=== PATIENT | female | born 1940 | race Caucasian/White ===

== ENCOUNTER 2019-07-08 16:49 | Inpatient (IN) | payer OTHER, BC ==
[~2019-07-08] VITALS: Ht 160 cm; Wt 54.4 kg
[2019-07-08 16:54] VITALS: Ht 160 cm; Wt 54.4 kg
--- NOTE | 2019-07-08 17:23 | NUR ---
PT DORAA FROM [facility] WITH CO INCREASED ALOC OVER THE LAST WEEK. IS AT BEDSIDE. PER , PT WAS DIAGNOSED A UTI AND TREATED WITH ABX AND PER THEY CHECKED HER URINE TODAY AND IT CAME BACK NEGATIVE. AT THIS TIME PT IS AWAKE AND ALERT TIMES 4. PT IS ABLE TO ANSWER ALL QUESTIONS AND FOLLOW ALL COMMANDS. PT HAS WEAKNESS TO R SIDE WHICH IS PT USUALY PER STROKE 8 YEARS AGO. PT STATES SHE HAS DECREASED EYE SITE TO L EYE. PT COMPLAINT AT THIS TIME IUS GENERAL WEAKNESS. PT IS HOOKED UP TO FULL MONITORS, SIDE RAIL UP, CALL LIGHT IN REACH, WILL CONTINUE TO MONITOR
[2019-07-08 17:31] LABS: BASOPHIL % 0.6 % (0-2); PLATELET COUNT 187 x10^3mcL (130-400); RED CELL DISTRIBUTION WIDTH 14.1 % (11.5-14.5)
[2019-07-08] MEDS ORDERED: GOOD SENSE ASPI81 M3 PO (17:45)
[2019-07-08] MEDS ORDERED: VITAMIN C500 M6 PO (17:45)
[2019-07-08] MEDS ORDERED: LIPITOR80 MG PO ×2 (17:46→17:53)
[2019-07-08] MEDS ORDERED: BUMETANIDE1 MG PO (17:46)
[2019-07-08 17:47] LABS: CALCIUM 10.2 mg/dL (8.5-10.1); CARBON DIOXIDE 39.3 mmol/L (21-32); CHLORIDE SERUM 97 mmol/L (98-107); CREATININE SERUM 1.9 mg/dL (0.6-1.0); GLUCOSE SERUM 132 mg/dL (74-106); POTASSIUM SERUM 3.9 mmol/L (3.5-5.1); SODIUM SERUM 137 mmol/L (136-145)
[2019-07-08] MEDS ORDERED: COR6 PO (17:47)
[2019-07-08] MEDS ORDERED: GABAPENTIN100 M2 PO (17:48)
[2019-07-08] MEDS ORDERED: ARICEPT10 MG PO (17:48)
[2019-07-08] MEDS ORDERED: NATURAL IRON65 MG PO (17:49)
[2019-07-08] MEDS ORDERED: SYNTHROID0.112 MG PO (17:50)
[2019-07-08] MEDS ORDERED: MAGNESIUM OXID400 MG PO ×2 (17:50→17:54)
[2019-07-08] MEDS ORDERED: ISOSORBIDE MONO60 MG PO ×2 (17:50→17:54)
[2019-07-08 17:51] LABS: ALKALINE PHOSPHATASE 141 U/L (46-116); ALT/SGPT 12 U/L (14-59); AST/SGOT 9 U/L (15-37); BILIRUBIN TOTAL 0.29 mg/dL (0.20-1.00); LIPASE 78 IU/L (73-393)
[2019-07-08] MEDS ORDERED: NAMENDA10 M2 PO (17:51)
[2019-07-08] MEDS ORDERED: PANTOPRAZOLE SO40 M1 PO (17:51)
[2019-07-08] MEDS ORDERED: MELATONIN3 MG PO (17:51)
[2019-07-08] MEDS ORDERED: PROMETHAZI6.25 MG/5 PO (17:52)
[2019-07-08] MEDS ORDERED: RYT150 PO ×2 (17:53→17:55)
[2019-07-08 17:54] LABS: ALBUMIN 2.8 g/dL (3.4-5.0); TOTAL PROTEIN, SERUM 6.1 g/dL (6.4-8.2)
[2019-07-08] MEDS ORDERED: CIPRO250 MG PO (17:54)
[2019-07-08 18:28] LABS: microscopic required? YES; urine erythrocyte NEGATIVE (NEGATIVE)
[2019-07-08 18:34] LABS: AMPHETAMINE QUAL UR NONE DETECTED (See below)
--- NOTE | 2019-07-08 18:40 | NUR ---
PT SISTER AND DAUGHTER AT BEDSIDE. PT ACTING NORMAL PER FAMILY AND COMMUNICATING AND TALKING WITH FAMILY. PT HOOKED UP TO FULL MONITORS, SIDE RAILS UP, CALL LIGHT IN REACH, WILL CONTINUE TO MONITOR.
--- NOTE | 2019-07-08 18:41 | NUR ---
ABOVE NOTE DONE BY INOCENTE AHN
--- NOTE | 2019-07-08 19:26 | NUR ---
REPORT GIVEN TO KARINE BROWER FOR FURTHER CARE OF PT
--- NOTE | 2019-07-08 19:29 | NUR ---
RECEIVED REPORT FROM ANABELLE BROWER. ASSUMING ALL CARE. PT IS A/OX4. BREATHING IS E/U ON RA. NO S/S OF ACUTE DISTRESS NOTED. WILL CONT TO MONITOR
--- NOTE | 2019-07-08 21:40 | NUR ---
REPORT GIVEN TO ED BROWER FOR CONTINUITY OF CARE. ALL QUESTIONS/CONCERNS ADDRESSED.
--- NOTE | 2019-07-08 21:50 | NUR ---
PT TRANSFERRED AT THIS TIME VIA [facility]. NO ACUTE CHANGES NOTED
[2019-07-08 22:18] LABS: CHOLESTEROL/HDL RATIO 3.9
[2019-07-08 22:33] VITALS: BP 130/56
[2019-07-08 23:21] LABS: FREE T4 1.26 ng/dL (0.76-1.46); FREE THYROXINE INDEX 2.9 ug/dL (1.4-4.5); T4(THYROXINE) 8.1 ug/dL (4.7-13.3)
--- NOTE | 2019-07-08 23:34 | NUR ---
Admitted this 78y/o female from ED dx of UTI. Came from [facility]. Awake, verbally responsive. Oriented x3. No respiratory distress noted on 02 2lpm via n/c. Denies pain. Denies n/v. Admission assessment done. No pressure injury noted. Blanchable redness to sacral area, optifoam applied for protection. Turned and repositioned to side. SCD in place. Tele#8 sinus bryan. HR-50's. Daughter Joycelyn provided some medical history. Will cont.to monitor. Call light within reach.
[2019-07-09 03:24] LABS: T3 TOTAL 0.48 ng/mL
--- NOTE | 2019-07-09 04:30 | NUR ---
Afebrile. No significant change in condition noted. Denies pain. No cough or congestion noted. Weight shift assistance provided. Turned and repositioned q2h. Kept pressure off back and bony prominences. Heels floated. SCD in place. Denies dysuria or hematuria noted. Cont.on IV rocephin. In no apparent distress.
[2019-07-09 05:05] VITALS: BP 128/54
[2019-07-09 07:06] LABS: CALCIUM 10.5 mg/dL (8.5-10.1); CARBON DIOXIDE 35.6 mmol/L (21-32); CHLORIDE SERUM 96 mmol/L (98-107); CREATININE SERUM 1.9 mg/dL (0.6-1.0); GLUCOSE SERUM 315 mg/dL (74-106); MAGNESIUM 1.8 mg/dL (1.8-2.4); PHOSPHOROUS 3.4 mg/dL (2.5-4.9); POTASSIUM SERUM 4.3 mmol/L (3.5-5.1); SODIUM SERUM 137 mmol/L (136-145)
--- NOTE | 2019-07-09 07:30 | NUR ---
RECEIVED PT FROM STATISTICAL PROGRAMMER ANALYST. ASSESSED AND DOCUMENTED. STABLE. DENIES ANY PAIN. SAFTEY PRECAUTIONS ARE IN PLACE. WILL MONITOR.
--- NOTE | 2019-07-09 09:00 | NUR ---
INFORMED ABOUT PT POOR APPETITE AND REQUESTED FOR GLUCERNA WITH MEAL. ALSO INFORMED HIM ABOUT A1C IS 8.6 AND REQUESTED FOR ACCUCHECK ORDER.
[2019-07-09 09:10] VITALS: BP 143/53
--- NOTE | 2019-07-09 10:00 | NUR ---
PT IS STABLE. ENCOURAGED PT TO REPOSITION Q2HR AND EXPLAINED THE IMPORTANCE OF IT. FAMILY AT BEDSIDE.
[2019-07-09 11:56] VITALS: BP 114/45
--- NOTE | 2019-07-09 12:40 | NUR ---
PT RESTING IN BED COMFORTABLY. STABLE. ENCOURAGED PT TO EAT.
[2019-07-09 12:46] LABS: PLATELET COUNT 199 x10^3mcL (130-400); RED CELL DISTRIBUTION WIDTH 14.3 % (11.5-14.5)
[2019-07-09 16:28] VITALS: BP 137/56
--- NOTE | 2019-07-09 17:00 | NUR ---
PT RESTING IN BED COMFORTABLY. STABLE. DENIES ANY PAIN. FAMILY AT BEDSIDE.
--- NOTE | 2019-07-09 19:05 | NUR ---
PT RESTING IN BED COMFORTABLY. DENIES ANY PAIN. STABLE. GAVE REPORT TO SENIOR RELIABILITY ENGINEER NURSE.
--- NOTE | 2019-07-09 19:20 | NUR ---
PT RECEIVED A/O X3, FORGETFUL, ABLE TO MAKE NEEDS KNOWN. NEWTOK TO BRANDY EARS. TELE #8, PT DENIES ANY CP/PRESSURE. PULSES PALPABLE, NO EDEMA PRESENT. BREATHING IS EVEN AND UNLABORED ON 2L NC, NO RESP DISTRESS OBSERVED. ABD SOFT AND ROUND, BOWEL TONES ACTIVE X4 QUAD, DENIES N/V. VOIDS FREELY USING BEDPAN, BUT MAY HAVE EPISODES OF URINARY INCONTINENCE. GENERALIZED WEAKNESS, AMBULATORY WITH FWW AT BASELINE, FALL PRECAUTIONS IN PLACE. SKIN IS WARM AND DRY, INTACT. PT DENIES HAVING ANY PAIN AT THIS TIME. SL TO LAC, INTACT, SITE WNL. NO ACUTE DISTRESS OBSERVED. BED IN LOWEST SETTING, SIDE RAILS UP X2, CALL LIGHT WITHIN REACH. WILL CONT TO MONITOR.
[2019-07-09 21:07] VITALS: BP 162/48
--- NOTE | 2019-07-10 00:28 | NUR ---
PT RESTING IN BED WITH EYES CLOSED, BUT IS EASILY AROUSABLE. BREATHING IS EVEN AND UNLABORED NO RESP DISTRESS NOTED. PT INCONTINENT OF URINE, PT CLEANED AND REPOSITIONED. BONY PROMINENCES OFFLOADED. NO ACUTE DISTRESS NOTED. BED ALARM ON, CALL LIGHT WITHIN REACH. WILL CONT TO MONITOR.
[2019-07-10 05:35] VITALS: BP 136/56
[2019-07-10 06:21] LABS: BASOPHIL % 0.5 % (0-2); PLATELET COUNT 161 x10^3mcL (130-400); RED CELL DISTRIBUTION WIDTH 13.6 % (11.5-14.5)
--- NOTE | 2019-07-10 06:34 | NUR ---
PT SLEPT WELL THROUGHOUT THE EVENING. BREATHING IS EVEN AND UNLABORED, NO RESP DISTRESS NOTED. PT DENIES HAVING ANY PAIN AT THIS TIME. NO ACUTE CHANGES ENCOUNTERED DURING SHIFT. ALL NEEDS MET AND ANTICIPATED. PT COMPLIANT WITH NURSING CARE. SL TO LAC INTACT. BED ALARM ON. CALL LIGHT WITHIN REACH. WILL ENDORSE CARE TO AM NURSE.
[2019-07-10 06:43] LABS: CALCIUM 10.5 mg/dL (8.5-10.1); CARBON DIOXIDE 36.4 mmol/L (21-32); CHLORIDE SERUM 96 mmol/L (98-107); CREATININE SERUM 1.9 mg/dL (0.6-1.0); GLUCOSE SERUM 147 mg/dL (74-106); MAGNESIUM 1.9 mg/dL (1.8-2.4); PHOSPHOROUS 3.4 mg/dL (2.5-4.9); POTASSIUM SERUM 4.1 mmol/L (3.5-5.1); SODIUM SERUM 135 mmol/L (136-145)
--- NOTE | 2019-07-10 07:25 | NUR ---
PT IN NO ACUTE DISTRESS. CONTINUITY OF CARE ENDORSED TO ANNABEL BROWER. ALL QUESTIONS AND CONCERNS ADDRESSED.
--- NOTE | 2019-07-10 07:30 | NUR ---
RECEIVED PATIENT RESTING IN BED, NO ACUTE DISTRESS NOTED. PATIENT DENIES SOB, ON 2L NC. PATIENT A//OX3, FORGETFUL AT TIMES. PATIENT HOONAH, WITH POOR VISION TO LEFT EYE. TELE MONITOR IN PLACE. PATIENT DENIES PAIN. ABD HERNIA NPTED. IV TO LAC SALINE LOCK, CDI&PATENT. CALL LIGHT WITHIN REACH, BED IN LOW POSITION, WILL CONTINUE TO MONITOR.
[2019-07-10 07:32] VITALS: BP 140/50
--- NOTE | 2019-07-10 12:35 | NUR ---
JOSE A MAYNARD MADE AWARE PATIENT WAS C/O PAIN TO LLE, AND EDEMA. JOSE A MAYNARD GAVE TORB FOR US VENOUS TO BLE. WILL CARRY OUT ORDERS AT THIS TIME.
--- NOTE | 2019-07-10 16:00 | NUR ---
PATIENT IS TO BE PLACED ON HEPARIN DRIP, VERIFIED HEPARIN SHEET WITH CHARGE NURSE PARIS. NEW IV WAS INSERTED TO RFA X2 ATTEMPTS, 22G.
[2019-07-10 17:56] VITALS: BP 134/57
--- NOTE | 2019-07-10 18:18 | NUR ---
PATIENT WAS PLACED ON HEPARIN DRIP AT THIS TIME, INFUSION WAS STARTED TO 1000U/HR AND LOADING DOSE OF 4400 U WAS GIVEN. HEPARIN WAS VERIFIED WITH RN BRENDEN. NO ACUTE DISTRESS NOTED, PATIENT DENIES PAIN. TELE MONITOR IN PLACE. IV TO LAC SALINE LOCK, CDI&PATENT. CALL LIGHT WITHIN REACH, BED IN LOW POSITION, WILL ENDORSE REPORT TO NIGHT RN. PTT ORDER FOR 07/11/19 0020, PER HEPARIN PROTOCOL.
--- NOTE | 2019-07-10 19:25 | NUR ---
RECIEVED PT RESTING IN PLACE WITH NO ACUTE DISTRESS NOTED AT THIS TIME, ASSESSMENT PERFORMED AT THIS TIME, PT IS A/OX3 TO PERSON PLACE AND TIME, FAMILY AT BEDSIDE, PT DENIES BOYLE OR DIZZINESS, PT DENIES PAIN OR SOB ON 2L O2 VIA NC, ALL PT NEEDS ATTENDED TO AT THIS TIME, SAFETY PRECAUTIONS IN PLACE, WILL CONTINUE TO MONITOR
[2019-07-10 20:33] VITALS: BP 127/50
--- NOTE | 2019-07-10 21:15 | NUR ---
PT HAS MINOR ABD DISTENTION, PT NOT RETAINING URINE, HAD RECENT BM, PT DENIES PAIN AT THIS TIME INFORMED DR HAWKINS, NO NEW ORDERS AT THIS TIME.
--- NOTE | 2019-07-11 00:33 | NUR ---
PT RESTING IN BED, PT DENIES PAIN OR SOB AT THIS TIME, PT DENIES PAIN OR SOB WITH NC AT 2L, ALL PT NEEDS ATTENDED TO AT THIS TIME, SAFETY PRECAUTIONS IN PLACE, WILL CONTINUE TO MONITOR
--- NOTE | 2019-07-11 01:16 | NUR ---
PTT CAME BACK AT 117.8 STOPPED HEPARIN DRIP PER HEPARIN PROTOCAL WITNESSED BY RON BROWER
--- NOTE | 2019-07-11 02:16 | NUR ---
HEPARIN DRIP RESTARTED AND RATE DECREASED BY 200UNITS PER HOUR FROM 1000UNITS TO 800UNITS PER HEPARIN PROTOCO. VERIFIED BY RON BROWER
[2019-07-11 04:56] VITALS: BP 143/55
--- NOTE | 2019-07-11 05:31 | NUR ---
PT RESTED IN BED COMFORTABLY IN BED, PT DENIED PAIN OR SOB THROUGH CARE, PT FAMILY REMAINED AT BEDSIDE DURING BEGINNING OF SHIFT, PT HAD TWO VOIDS, ALL PT NEEDS ATTENDED TO, SAFETY PRECAUTIONS REMAINED IN PLACE THROUGH NIGHT, WILL CONTINUE TO MONITOR AND ENDORSE CARE
--- NOTE | 2019-07-11 05:45 | NUR ---
PT COMPLAINING OF INCREASED ABD DISCOMFORT AND BLOATING, PALPATED ABD, ABD WAS FIRM, BLADDER SCANNED AND GREATER THAN 810 ML PRESENT, CALLED DR ROSS Ruvalcaba TO INFORM HER AND SHE ORDERED JOVEL.
--- NOTE | 2019-07-11 06:15 | NUR ---
JOVEL CATHETER INSERTED, DRAINING CLEAR YELLOW URINE.
[2019-07-11 06:40] LABS: PLATELET COUNT 163 x10^3mcL (130-400); RED CELL DISTRIBUTION WIDTH 13.7 % (11.5-14.5)
[2019-07-11 06:56] LABS: CALCIUM 10.2 mg/dL (8.5-10.1); CARBON DIOXIDE 34.2 mmol/L (21-32); CHLORIDE SERUM 93 mmol/L (98-107); CREATININE SERUM 1.7 mg/dL (0.6-1.0); GLUCOSE SERUM 332 mg/dL (74-106); POTASSIUM SERUM 3.9 mmol/L (3.5-5.1); SODIUM SERUM 133 mmol/L (136-145)
--- NOTE | 2019-07-11 07:20 | NUR ---
RECEIVED PT FROM ASSISTANT ACCOUNT EXECUTIVE RN. Peg/KEN3. FORGETFUL. TELE#8. DENIES CHEST PAIN/PRESSURE. RESPIRATIONS EQUAL AND UNLABORED ON 2L NC. DENIES SOB. PT DENIES ANY PAIN AT THIS TIME. NOTED ABDOMINAL TENDERNESS TO LOWER QUAD UPON PALP. PT STATES "THIS TENDERNESS JUST STARTED YESTERDAY. I HAVENT HAD THIS BEFORE. ITS IMPROVED SINCE YESTERDAY BUT STILL THERE" HEPARIN DRIP INFUSING ORDERED AT 800 UNITS/HR TO RFA. NO REDNESS OR SWELLING NOTED. WILL CONTINUE TO MONITOR. CALL LIGHT IN REACH. BED IN LOWEST POSITION.
--- NOTE | 2019-07-11 07:25 | NUR ---
RECEIVED CRITICAL LAB PTT OF 68.4. DECREASED HEPARIN DRIP TO 700 UNITS/HR PER HEPARIN DRIP PROTOCOL. ORDERED STAT PTT PLACED AT 1130. WILL CONTINUE TO MONITOR.
[2019-07-11 08:55] VITALS: BP 136/50
--- NOTE | 2019-07-11 09:27 | NUR ---
PT SITTING UP IN BED. NO ACUTE RESP DISTRESS NOTED ON 2L NC. PT REPOSITIONED SITTING UP IN BED ON LEFT SIDE. PT STILL HAVING ABDOMINAL TENDERNESS TO LOWER QUAD. ALEYDA OXYACETYLENE WELDER MADE AWARE. GIVEN PO MEDS. TOLERATED WELL. IV TO LAC FLUSHED WELL. NO REDNESS OR SWELLING NOTED. IV TO RFA INFUSING HEPARIN PER PROTOCOL AT 700 UNITS/HR. WILL CONTINUE TO MONITOR. CALL LIGHT IN REACH. BED IN LOWEST POSITION.
--- NOTE | 2019-07-11 11:42 | NUR ---
PT SITTING UP IN BED. NO ACUTE RESP DISTRESS NOTED ON RA. PT DENIES ANY PAIN AT THIS TIME. PT C/O NAUSEA. MEDICATED PER EMAR. BLOOD SUGAR CHECKED WAS 216. GIVEN 6 UNITS OF REGULAR INSULIN PER SLIDING SCALE. WILL CONTINUE TO MONITOR. CALL LIGHT IN REACH. BED IN LOWEST POSITION.
[2019-07-11 12:30] VITALS: BP 105/43
--- NOTE | 2019-07-11 12:39 | NUR ---
RECEIVED CRITICAL PTT OF 51.9. PER HEPARIN DRIP PROTOCOL NO CHANGE NEEDED. HEPARIN DRIP INFUSING AT 700 UNITS/HR. ORDERED STAT PTT AT 1630. WILL CONTINUE TO MONITOR.
--- NOTE | 2019-07-11 15:23 | NUR ---
RECEIVED ORDERS TO TRANSFER PT TO MED SURG. TELE#8 RETURNED TO COVERING MACHINE TENDER ERNST.
[2019-07-11 16:31] VITALS: BP 114/43
--- NOTE | 2019-07-11 18:45 | NUR ---
PT SITTING UP IN BED. NO ACUTE RESP DISTRESS NOTED ON 2L NC. PT DENIES ANY PAIN AT THIS TIME. JOVEL CARE PROVIDED. EMPTIED 100 ML OF CLOUDY YELLOW URINE FROM JOVEL. PT DENIES ANY N/V. IV TO LFA INFUSING HEPARIN AT 700 UNITS/HR PER PROTOCOL. NO REDNESS OR SWELLING NOTED. WILL ENDORSE CARE TO HR ANALYST RN. CALL LIGHT IN REACH. BED IN LOWEST POSITION.
[2019-07-11 19:11] VITALS: BP 135/47
--- NOTE | 2019-07-11 19:25 | NUR ---
RECIEVED PT RESTING IN BED WITH NO DISTRESS, ASSESSMENT PERFORMED AT THIS TIME, PT IS A/OX3 TO PERSON PLACE AND TIME, FORGETFULL, PT DENIES PAIN OR SOB AT THIS TIME, JOVEL IN PLACE, ABD SOFT AND SLIGHTLY DISTENDED BUT NOT TENDER ON PALPATION, PT ON 2L NC, ALL PT NEEDS ATTENDED TO, SAFETY PRECAUTIONS IN PLACE, WILL CONTINUE TO MONITOR
[2019-07-12] VITALS (7 sets, daily range): BP systolic 104–156; BP diastolic 41–50
--- NOTE | 2019-07-12 00:20 | NUR ---
PT RESTING IN BED, HAS NO SIGNS OF PAIN OR SOB ON 2L VIA NC, ALL PT NEEDS ATTENDED TO, SAFETY PRECAUTIONS IN PLACE, WILL CONTINUE TO MONITOR
--- NOTE | 2019-07-12 05:08 | NUR ---
PT RESTING IN BED WITH NO DISTRESS THROUGH NIGHT, PT REMAINED IN BED WITH NO COMPLAINTS OF PAIN OR SOB ON 2L VIA NC, JOVEL REMAINED IN PLACE, DRAINING YELLOW URING, ALL PT NEEDS ATTENDED TO, WILL CONTINUE TO MONITOR AND ENDORS CARE
--- NOTE | 2019-07-12 05:55 | NUR ---
PT REPORTS MILD NAUSEA, ADMINISTERED ZOFRAN PER PRN ORDER, WILL MONITOR
[2019-07-12 06:50] LABS: BASOPHIL % 0.7 % (0-2); PLATELET COUNT 159 x10^3mcL (130-400); RED CELL DISTRIBUTION WIDTH 13.9 % (11.5-14.5)
[2019-07-12 07:03] LABS: CALCIUM 10.4 mg/dL (8.5-10.1); CARBON DIOXIDE 38.7 mmol/L (21-32); CHLORIDE SERUM 95 mmol/L (98-107); CREATININE SERUM 1.5 mg/dL (0.6-1.0); GLUCOSE SERUM 356 mg/dL (74-106); SODIUM SERUM 133 mmol/L (136-145)
--- NOTE | 2019-07-12 07:20 | NUR ---
RECEIVED PATIENT AOX4, NOT IN DISTRESS, MEDSURG, PALPABLE PULSES, NO EDEMA, CTA ON BLF, ACTIVE BS, VOIDS WITH JOVEL CATHETER IN PLACE, CLEAR URINE, NO SIGNS OF INFECTION, GENERALIZED WEAKNESS, LIMITED RLE ROM, RLE EDEMA, HEPARIN DRIP INFUSING WELL AT 800 UNITS /HR TO RFA, NO REDNESS OR INFILTRATION, IV INTACT AND PATENT TO LFA , NO REDNESS OR INFILTRATION. CALL LIGHT WITHIN REACH. BED AT LOWEST POSITION.
--- NOTE | 2019-07-12 08:20 | NUR ---
RECEIVED PTT RESULTS AT 0737. BOLUS 2200 UNITS HEPARIN , WITH INOCENTE PEREZ WITNESS TO BOLUS ADMINISTRATION OF 0.44ML HEPARIN. CHANGED HEPARIN DRIP RATE FROM 700UNITS/HR TO 800 UNITS/HR WITH INOCENTE PEREZ WITNESS TO CHANGE OF DOSE. ORDERED PTT AT 1230PM.
--- NOTE | 2019-07-12 09:29 | NUR ---
SEEN PATIENT AOX4, NOT IN DISTRESS. BP 119/41, HR 60, PO MEDICATIONS TAKEN, PROTONIX IVP GIVEN. BUMETANIDE IVP GIVEN. CALL LIGHT WITHIN REACH. BED AT LOWEST POSITION.
[2019-07-12] MEDS ORDERED: CIPRO500 MG PO (11:12)
--- NOTE | 2019-07-12 12:05 | NUR ---
SEEN AOX4, NOT IN DISTRESS, O2 AT 2LPM VIA NC, HEPARIN DRIP INFUSING WELL AT 800UNITS/HR TO RFA, NO REDNESS OR INFILTRATION. PO MEDICATIONS GIVEN.
--- NOTE | 2019-07-12 12:10 | NUR ---
JOVEL CATHETER DISCONTINUED PER ORDERS BY JOSE A MAYNARD. WILL CONTINUE TO MONITOR URINE OUTPUT OF PATIENT.
--- NOTE | 2019-07-12 12:15 | NUR ---
RECEIVED CALL FROM DAUGHTER OF PATIENT, PER PATIENT'S REQUEST. DAUGHTER INFORMED OF TRANSFER TO SNF.
--- NOTE | 2019-07-12 12:35 | NUR ---
DISCONTINUED HEPARIN DRIP PER ORDERS.
--- NOTE | 2019-07-12 13:16 | NUR ---
FLUSHED IV SITE AT RFA. ZOSYN IVPB GIVEN AND INFUSING WELL AT RFA. NO REDNESS OR INFILTRATION
--- NOTE | 2019-07-12 14:43 | NUR ---
TALKED WITH AND PATIENT .BOTH FEEL UNCOMFORTABLE ABOUT TRANSFER TO SNF. PATIENT STATED SHE FEELS BETTER WITH STAYING A DAY OR TWO LONGER. CALLED DANNY MEDICAL VIDEOGRAPHER AND PER DANNY , PATIENT HAS TO CALL FOR A RIGHT TO APPEAL TO STAY IN THE HOSPITAL WITHIN 24 HOURS PRIOR TO DISCHARGE.
--- NOTE | 2019-07-12 15:21 | NUR ---
PATIENT HAD NO URINE OUTPUT SINCE JOVEL DISCONTINUED. BLADDER SCAN DONE WITH 569ML, OIL AND GAS SPECIALIST ALEYDA MADE AWARE. ORDERS GIVEN. JOVEL CATHETER REINSERTED PER OIL AND GAS SPECIALIST ALEYDA'S ORDERS. PER JOSE A MAYNARD, FLOMAX 0.4MG/TAB PO DAILY
--- NOTE | 2019-07-12 15:22 | NUR ---
JOVEL CATHETER INSERTION DONE WITH STERILE TECHNIQUE. PATIENT URINE OUTPUT 800ML.
--- NOTE | 2019-07-12 15:38 | NUR ---
PATIENT'S CALLED FOR APPEAL TO STAY IN HOSPITAL. WAITING FOR CALL BACK FROM MONOMER RECOVERY OPERATOR FOR THE STATUS OF THE APPEAL.
--- NOTE | 2019-07-12 15:59 | NUR ---
JOSE A MAYNARD MADE AWARE ABOUT PATIENT'S APPEAL FOR STAY IN THE HOSPITAL
--- NOTE | 2019-07-12 16:23 | NUR ---
SEEN AOX4, NOT IN DISTRESS, PO MEDICATIONS GIVEN. BUMETANIDE IVP GIVEN. ACCUCHECK DONE WITH CBG 162, INSULIN REG 3 UNITS GIVEN SQ AT ABD. CALL LIGHT WITHIN REACH. BED AT LOWEST POSITION .
--- NOTE | 2019-07-12 18:36 | NUR ---
DAUGHTER AT PATIENT'S BEDSIDE, DAUGHTER AWARE OF APPEAL TO STAY IN THE HOSPITAL. WILL WAIT FOR CALL BACK FROM STAFF RADIOGRAPHER.
--- NOTE | 2019-07-12 19:05 | NUR ---
RECEIVED REPORT FROM DAY SHIFT NURSE, DWIGHT BROWER. PT IS AAOX4. CAN BE FORGETFUL AT TIMES. SPEECH IS CLEAR. DENIES BOYLE. PT IS LITTLE TRAVERSE, AND HAS POOR VISION ON THE LEFT EYE. M/S PT. DENIES CHEST PAIN/PRESSURE. PULSES ARE PALPABLE. TRACE EDEMA NOTED TO RLE. USV + FOR DVT, LEG IS ELEVATED ON PILLOW AT THIS TIME. BREATHING IS EVEN AND UNLABORED ON 2LNC. LUNG SOUNDS DIMINISHED. DENIES SOB. NO RESP. DISTRESS NOTED. ABD IS SOFT AND NONDISTENDED. BS ACTIVE. JOVEL IN PLACE DRAINING TO GRAVITY LIGHT YELLOW URINE. DENIES DYSURIA. STRICT I&O IN PLACE, 1200ML/DAY. GENERALIZED WEAKNESS. BASELINE: AMBULATES WITH CANE/FWW. SKIN INTACT. NO DENIES PAIN. IV TO RAC AND LAC SL. DRY AND INTACT. NO ERYTHEMA NOTED. BED IN LOWEST POSITION. CALL LIGHT WITHIN REACH. WILL CONTINUE TO MONITOR.
--- NOTE | 2019-07-12 21:50 | NUR ---
ROUTINE MEDICATIONS WERE GIVEN AND TOLERATED WELL. NO ACUTE DISTRESS NOTED. PT WAS ALSO C/O 4/10 SHARP PAIN ON R LEG. MEDICATED WITH TYLENOL PRN PER SEP ORDER. PT WAS ALSO C/O NAUSEA, MEDICATED WITH ZOFRAN PRN PER SEP ORDER. WILL REASSESS AND CHECK EFFECTIVENESS. PT STATED SHE FELT LIKE SHE WAS GOING TO HAVE A BM, PLACE PT ON BED COOK BUT NO BM. BED IN LOWEST POSITION. CALL LIGHT WITHIN REACH. WILL CONTINUE TO MONITOR.
--- NOTE | 2019-07-12 23:41 | NUR ---
PT IS RESTING COMFORTABLY IN BED WITH EYES CLOSED, BUT EASILY AROUSABLE WHEN SPOKEN TO. BREATHING IS EVEN AND UNLABORED ON 2LNC. NO RESP DISTRESS NOTED. BED IN LOWEST POSITION. CALL LIGHT WITHIN REACH. WILL CONTINUE TO MONITOR.
--- NOTE | 2019-07-13 01:44 | NUR ---
PT IS RESTING COMFORTABLY IN BED WITH EYES CLOSED, BUT EASILY AROUSABLE WHEN SPOKEN TO. BREATHING IS EVEN AND UNLABORED ON 2LCN. NO RESP DISTRESS NOTED. BED IN LOWEST POSITION. CALL LIGHT WITHIN REACH. WILL CONTINUE TO MONITOR.
--- NOTE | 2019-07-13 03:30 | NUR ---
PT ACCIDENTALLY PULLED OUT IV TO RAC. IV TO LAC STILL DRY AND INTACT. NO ERYTHEMA NOTED. CHANGED PTS GOWN. DENIES PAIN OR SOB AT THIS TIME. BED IN LOWEST POSITION. CALL LIGHT WITHIN REACH. WILL CONTINUE TO MONITOR.
--- NOTE | 2019-07-13 03:32 | NUR ---
PT ACCIDENTALLY PULLED OUT IV TO LAC. IV TO RFA STILL DRY AND INTACT. NO ERYTHEMA NOTED. CHANGED PTS GOWN. DENIES PAIN OR SOB AT THIS TIME. BED IN LOWEST POSITION. CALL LIGHT WITHIN REACH. WILL CONTINUE TO MONITOR.
[2019-07-13 04:55] VITALS: BP 148/50
--- NOTE | 2019-07-13 06:50 | NUR ---
PT SLEPT IN LONG INTERVALS THROUGHOUT THE NIGHT AND COMPLIED WITH NURSING CARE WITH NO ACUTE EVENTS OCCURRING DURING THE SHIFT. ALL NEEDS ASSESSED AND ATTENDED TO. COMFORT AND SAFETY MEASURES MAINTAINED. WILL CONTINUE TO MONITOR AND ENDORSE CARE TO DAY SHIFT NURSE.
--- NOTE | 2019-07-13 07:25 | NUR ---
RECEIVED PATIENT, IN BED, AAOX4. ATMAUTLUAK NOTED. EPR NIGHT RN, PATIENT HAS POOR VISION TO LEFT EYE. NO RESP DISTRESS NOTED. REMAINS ON 2L NC, HOB ELEVATED. NO C/O PAIN AT THIS TIME. SALINE LOCK TO RFA, NO INFILTRATION OR REDNESS NOTED. RLE ELEVATED. JOVEL CATHETER IN PLACE, DRAINING WITHOUT DIFFICULTY. SAFETY PRECAUTION IN PLACE. CALL LIGHT WITHIN REACH. WILL CONTINUE TO MONITOR.
[2019-07-13 08:09] VITALS: BP 133/49
--- NOTE | 2019-07-13 08:55 | NUR ---
PATIENT RQUESTED ZOFRAN FOR NAUSEA BEFORE TAKING MORNING MEDICATIONS. ZOFRAN 4MG IVP GIVEN. TOLERATED WELL. WILL CONTINUE TO MONITOR.
--- NOTE | 2019-07-13 09:35 | NUR ---
PATIENT IN BED. NO ACUTE RESP DISTRESS NOTED. PER PATIENT, SHE STILL FEELS SOME NAUSEA. SALTINE CRACKERS PROVIDED AND REPOSITIONED PATIENT FOR COMFORT. WILL REAASSESS FEELINGS OF NAUSEA. NO ACUTE RESP DISTRESS AT THIS TIME. REMAINS ON 2L NC. HOB ELEVATED. NO COMPLAINTS OF PAIN. PATIENT IS AAOX4, NO CONFUSION NOTED. NO NUMBNESS OR TINGLING NOTED. NEURO CHECK PERFORMED. PATIENT IN STABLE CONDITION. IV INTACT AND PATENT. NO REDNESS OR INFILTRATION NOTED. SAFETY PRECAUTION IN PLACE. RLE ELEVATED. CALL LIGHT WITHIN REACH. WILL CONTINUE TO MONITOR.
--- NOTE | 2019-07-13 12:30 | NUR ---
PATIENT IN BED, WATCHING TV. NO ACUTE RESP DISTRESS NOTED. PER PATIENT, SHE FEELS BETTER AND NOT NAUSEATED. REMAINS ON 2L NC. HOB ELEVATED. NO COMPLAINTS OF PAIN. PATIENT IS AAOX4, NO CONFUSION NOTED. NO NUMBNESS OR TINGLING NOTED. NEURO CHECK PERFORMED. PATIENT IN STABLE CONDITION. IV INTACT AND PATENT. NO REDNESS OR INFILTRATION NOTED. SAFETY PRECAUTION IN PLACE. RLE ELEVATED. CALL LIGHT WITHIN REACH. WILL CONTINUE TO MONITOR.
[2019-07-13 12:35] VITALS: BP 127/46
--- NOTE | 2019-07-13 15:15 | NUR ---
PATIENT IN BED. NO ACUTE RESP DISTRESS NOTED. PER PATIENT, SHE FEELS BETTER AND NOT NAUSEATED. REMAINS ON 2L NC. HOB ELEVATED. NO COMPLAINTS OF PAIN. PATIENT IS AAOX4, NO CONFUSION NOTED. NO NUMBNESS OR TINGLING NOTED. NEURO CHECK PERFORMED. PATIENT IN STABLE CONDITION. IV INTACT AND PATENT. NO REDNESS OR INFILTRATION NOTED. SAFETY PRECAUTION IN PLACE. RLE ELEVATED. CALL LIGHT WITHIN REACH. WILL CONTINUE TO MONITOR.
[2019-07-13] MEDS ORDERED: ELIQUIS2.5 MG PO (16:08)
[2019-07-13 16:15] VITALS: BP 104/41
[2019-07-13 16:36] VITALS: BP 104/41
--- NOTE | 2019-07-13 17:44 | NUR ---
GAVE REPORT TO INOCENTE BRANNON IN [facility]. ALL QUESTIONS AND CONCERNS ADDRESSED. WILL NOTIFY PATIENT AND FAMILY.
--- NOTE | 2019-07-13 17:55 | NUR ---
DISCHARGE HOME INSTRUCTIONS GIVEN TO PATIENT AND DAUGHTER, VERBALIZED UNDERSTANDING. ALL QUESTIONS AND CONCERN ADDRESSED. IV DISCONTINUED, TOLERATED WELL. CATHETER INTACT, GAUZE AND TAPE IN PLACE. JOVEL CATHETER REMAIN IN PLACE ORDERED. ID BANDS REMOVED. ALL NEEDS MET. INSTRUCTED TO CALL FOR ASSISTANCE WHEN READY TO LEAVE THE UNIT.
--- NOTE | 2019-07-13 18:15 | NUR ---
PATIENT IS BEING DISCHARGED IN STABLE CONDITION. NO C/O PAIN OR RESP DISTRESS NOTED. ALL NEEDS MET. ACCOMPANIED PATIENT AND DAUGHTER TO LOBBY VIA WHEELCHAIR BY JAY HERNÁNDEZ.
== END 2019-07-13 19:05 | disposition home or self-care (01) | DRG 682 ==
LOC: ED 16:49 → DU 20:31 → MU 07-11 15:16
PROVIDERS: Emergency Medicine; Internal Medicine; ADMIT General Practice
DX: I12.9 Hypertensive chronic kidney disease with stage 1 through stage 4 chronic kidney disease, or unspecified chronic kidney disease (principal); I50.23 Acute on chronic systolic (congestive) heart failure; G93.41 Metabolic encephalopathy; N17.0 Acute kidney failure with tubular necrosis; N39.0 Urinary tract infection, site not specified; I82.411 Acute embolism and thrombosis of right femoral vein; B96.5 Pseudomonas (aeruginosa) (mallei) (pseudomallei) as the cause of diseases classified elsewhere; E11.65 Type 2 diabetes mellitus with hyperglycemia; N18.9 Chronic kidney disease, unspecified; E11.22 Type 2 diabetes mellitus with diabetic chronic kidney disease; F03.90 Unspecified dementia, unspecified severity, without behavioral disturbance, psychotic disturbance, mood disturbance, and anxiety; I48.0 Paroxysmal atrial fibrillation; I25.10 Atherosclerotic heart disease of native coronary artery without angina pectoris; D64.9 Anemia, unspecified; E78.5 Hyperlipidemia, unspecified; E03.9 Hypothyroidism, unspecified; Z68.20 Body mass index [BMI] 20.0-20.9, adult; Z95.5 Presence of coronary angioplasty implant and graft; Z79.01 Long term (current) use of anticoagulants
CPT/HCPCS: 82962; 83880; 84439; 97116-GP; 97530-GP; C9113; G0378; G0480; J0696; J1644; J1940; J2405; J2543; J3490; J7040; Q0092

== ENCOUNTER 2019-08-16 21:36 | Inpatient (IN) | payer OTHER, BC ==
[~2019-08-16] VITALS: Ht 160 cm; Wt 60.5 kg
[~2019-08-16 21:36] MED LIST: ARICEPT10 MG PO; BUMETANIDE1 MG PO; CIPRO250 MG PO; CIPRO500 MG PO; COR6 PO; ELIQUIS2.5 MG PO; GABAPENTIN100 M2 PO; GOOD SENSE ASPI81 M3 PO; ISOSORBIDE MONO60 MG PO; LIPITOR80 MG PO; MAGNESIUM OXID400 MG PO; MELATONIN3 MG PO; NAMENDA10 M2 PO; NATURAL IRON65 MG PO; PANTOPRAZOLE SO40 M1 PO; PROMETHAZI6.25 MG/5 PO; RYT150 PO; SYNTHROID0.112 MG PO; VITAMIN C500 M6 PO
[2019-08-16 22:09] LABS: BASOPHIL % 0.4 % (0-2); PLATELET COUNT 200 x10^3mcL (130-400)
[2019-08-16 22:11] LABS: RED CELL DISTRIBUTION WIDTH 16.2 % (11.5-14.5)
[2019-08-16 22:20] LABS: CALCIUM 10.3 mg/dL (8.5-10.1); CARBON DIOXIDE 33.3 mmol/L (21-32); CHLORIDE SERUM 106 mmol/L (98-107); CREATININE SERUM 1.1 mg/dL (0.6-1.0); GLUCOSE SERUM 78 mg/dL (74-106); SODIUM SERUM 143 mmol/L (136-145)
[2019-08-16 23:17] LABS: UA SPECIFIC GRAVITY 1.015 (1.005-1.035); microscopic required? YES; urine erythrocyte NEGATIVE (NEGATIVE)
[2019-08-17] MEDS ORDERED: MAG-OXIDE200 MG PO (00:39)
[2019-08-17 02:44] LABS: CHOLESTEROL/HDL RATIO 3.3
[2019-08-17 03:04] LABS: T3 TOTAL 0.78 ng/mL
[2019-08-17 03:07] LABS: FREE T4 1.07 ng/dL (0.76-1.46); FREE THYROXINE INDEX 3.3 ug/dL (1.4-4.5)
[2019-08-17 06:10] LABS: CARBON DIOXIDE 31.7 mmol/L (21-32); CHLORIDE SERUM 105 mmol/L (98-107); CREATININE SERUM 1.1 mg/dL (0.6-1.0); GLUCOSE SERUM 100 mg/dL (74-106); MAGNESIUM 1.9 mg/dL (1.8-2.4); PHOSPHOROUS 1.1 mg/dL (2.5-4.9); POTASSIUM SERUM 3.9 mmol/L (3.5-5.1); SODIUM SERUM 141 mmol/L (136-145)
[2019-08-17 06:15] LABS: BASOPHIL % 0.8 % (0-2); PLATELET COUNT 179 x10^3mcL (130-400)
[2019-08-17 06:17] LABS: RED CELL DISTRIBUTION WIDTH 16.1 % (11.5-14.5)
[2019-08-17 08:50] VITALS: BP 142/53
[2019-08-17 12:05] VITALS: BP 138/87
[2019-08-17 16:27] VITALS: BP 147/54
[2019-08-17 16:46] LABS: AMPHETAMINE QUAL UR NONE DETECTED (See below)
[2019-08-17 19:34] VITALS: BP 138/57
[2019-08-18 04:57] VITALS: BP 151/53
[2019-08-18 07:11] LABS: BASOPHIL % 0.3 % (0-2); PLATELET COUNT 181 x10^3mcL (130-400)
[2019-08-18 07:16] LABS: RED CELL DISTRIBUTION WIDTH 15.6 % (11.5-14.5)
[2019-08-18 07:33] LABS: CALCIUM 10.1 mg/dL (8.5-10.1); CARBON DIOXIDE 32.1 mmol/L (21-32); CHLORIDE SERUM 106 mmol/L (98-107); GLUCOSE SERUM 72 mg/dL (74-106); MAGNESIUM 2.1 mg/dL (1.8-2.4); POTASSIUM SERUM 4.8 mmol/L (3.5-5.1); SODIUM SERUM 142 mmol/L (136-145)
[2019-08-18 09:07] VITALS: BP 151/60
[2019-08-18 12:27] VITALS: BP 154/69
[2019-08-18 17:28] VITALS: BP 111/66
[2019-08-18 20:03] VITALS: BP 138/52
[2019-08-19 05:02] VITALS: BP 148/59
[2019-08-19 06:14] LABS: BASOPHIL % 0.6 % (0-2); PLATELET COUNT 188 x10^3mcL (130-400)
[2019-08-19 06:24] LABS: RED CELL DISTRIBUTION WIDTH 16.4 % (11.5-14.5)
[2019-08-19 06:46] LABS: CALCIUM 9.8 mg/dL (8.5-10.1); CARBON DIOXIDE 31.6 mmol/L (21-32); CHLORIDE SERUM 104 mmol/L (98-107); GLUCOSE SERUM 241 mg/dL (74-106); POTASSIUM SERUM 4.5 mmol/L (3.5-5.1); SODIUM SERUM 141 mmol/L (136-145)
[2019-08-19 08:29] VITALS: BP 126/44
[2019-08-19 13:48] VITALS: BP 130/49
[2019-08-19 18:13] VITALS: BP 134/54
[2019-08-19 19:30] VITALS: BP 99/37
[2019-08-20 05:07] VITALS: BP 138/57
[2019-08-20 07:28] LABS: CALCIUM 9.3 mg/dL (8.5-10.1); CARBON DIOXIDE 31.3 mmol/L (21-32); CHLORIDE SERUM 102 mmol/L (98-107); GLUCOSE SERUM 216 mg/dL (74-106); MAGNESIUM 1.9 mg/dL (1.8-2.4); POTASSIUM SERUM 3.9 mmol/L (3.5-5.1); SODIUM SERUM 140 mmol/L (136-145)
[2019-08-20 09:54] VITALS: BP 147/57
[2019-08-20] MEDS ORDERED: NOVAPLUS ZYVO2 MG/ML IV (11:16)
[2019-08-20 11:55] VITALS: Ht 160 cm; Wt 60.5 kg
[2019-08-20 11:59] LABS: PLATELET COUNT 171 x10^3mcL (130-400)
[2019-08-20 13:06] VITALS: BP 147/57
[2019-08-20 14:11] VITALS: BP 132/54
[2019-08-20 16:12] VITALS: BP 112/55
== END 2019-08-20 18:40 | DRG 917 ==
LOC: ED 21:36 → DU 23:58
PROVIDERS: Emergency Medicine; ADMIT Internal Medicine
DX: T38.3X1A Poisoning by insulin and oral hypoglycemic [antidiabetic] drugs, accidental (unintentional), initial encounter (principal); N17.0 Acute kidney failure with tubular necrosis; N39.0 Urinary tract infection, site not specified; Z16.21 Resistance to vancomycin; B95.2 Enterococcus as the cause of diseases classified elsewhere; E11.649 Type 2 diabetes mellitus with hypoglycemia without coma; I48.0 Paroxysmal atrial fibrillation; I11.9 Hypertensive heart disease without heart failure; I25.10 Atherosclerotic heart disease of native coronary artery without angina pectoris; I25.5 Ischemic cardiomyopathy; H54.8 Legal blindness, as defined in USA; E03.9 Hypothyroidism, unspecified; F03.90 Unspecified dementia, unspecified severity, without behavioral disturbance, psychotic disturbance, mood disturbance, and anxiety; I25.2 Old myocardial infarction; Z96.41 Presence of insulin pump (external) (internal); Z95.5 Presence of coronary angioplasty implant and graft; Z79.82 Long term (current) use of aspirin; Z79.4 Long term (current) use of insulin; Z87.891 Personal history of nicotine dependence; Z86.718 Personal history of other venous thrombosis and embolism; Z86.73 Personal history of transient ischemic attack (TIA), and cerebral infarction without residual deficits; Z68.23 Body mass index [BMI] 23.0-23.9, adult; Y92.122 Bedroom in nursing home as the place of occurrence of the external cause
CPT/HCPCS: 76770; 82962; 83880; 84439; G0378; J0696; J1815; J2020; J3490; J7030; Q0092